=== PATIENT | male | born 1985 | race African-American/Black ===

== ENCOUNTER 2017-07-13 12:59 | Emergency (ER) | payer OTHER ==
[~2017-07-13] VITALS: Ht 170.2 cm; Wt 90.7 kg
[~2017-07-13 12:59] MED LIST: AMOXIL 875 MG875 MG PO; BENTYL10 M1 PO; BENZONATATE200 M1 PO; MEDROL DOSEPAK1 PAC PO; MEDROL4 M2 PO; MOTRIN800 MG PO; PERCOCET 325 MG1 TA2 PO; PREDNICOT10 MG PO; PROAIR HFA8.5 GM INH; VALIUM5 M1 PO; VENTOLIN HFA18 GM INH; ZITHROMAX250 M2 PO; ZOFRAN ODT4 M1 SL
[2017-07-13 13:22] VITALS: BP 138/71
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
[2017-07-13] MEDS ORDERED: ACID REDUCER150 MG PO (15:04)
[2017-07-13] MEDS ORDERED: CYCLOBENZAPRINE10 M1 PO (18:24)
[2017-07-13] MEDS ORDERED: IBUPROFEN600 M1 PO (18:25)
== END 2017-07-13 18:29 ==
LOC: ERH 12:59
DX: S39.012A Strain of muscle, fascia and tendon of lower back, initial encounter (principal); W17.89XA Other fall from one level to another, initial encounter; Y92.9 Unspecified place or not applicable; Y93.9 Activity, unspecified
CPT/HCPCS: 96372; J1885

== ENCOUNTER 2017-10-30 10:08 | Emergency (ER) | payer OTHER ==
[~2017-10-30] VITALS: Ht 170.2 cm; Wt 90.7 kg
[~2017-10-30 10:08] MED LIST changes: +ACID REDUCER150 MG PO; +CYCLOBENZAPRINE10 M1 PO; +IBUPROFEN600 M1 PO
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
[2017-10-30 12:11] VITALS: BP 124/80
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
[2017-10-30] MEDS ORDERED: CYCLOBENZAPRINE10 M1 PO (12:15)
[2017-10-30] MEDS ORDERED: IBUPROFEN800 M1 PO (12:15)
== END 2017-10-30 12:19 ==
LOC: ERH 10:08
DX: R07.9 Chest pain, unspecified (principal); M54.2 Cervicalgia; J45.909 Unspecified asthma, uncomplicated; F17.210 Nicotine dependence, cigarettes, uncomplicated; V89.2XXA Person injured in unspecified motor-vehicle accident, traffic, initial encounter
CPT/HCPCS: 71046; 72050